=== PATIENT | female | born 1980 | race Caucasian/White ===

== ENCOUNTER 2017-10-26 08:36 | Day surgery (SDC) | payer OTHER ==
[2017-10-26] MEDS ORDERED: ULTRACET PO (16:16)
== END 2017-10-26 21:15 | disposition home or self-care (01) ==
LOC: CIR.AMB 08:36
DX: D25.0 Submucous leiomyoma of uterus (principal)

== ENCOUNTER 2020-08-31 09:45 | Inpatient (IN) | payer OTHER ==
[~2020-08-31] VITALS: Ht 162.6 cm; Wt 56.7 kg
[~2020-08-31 09:45] MED LIST: ULTRACET PO
[2020-09-06] MEDS ORDERED: PROFERRIN-FORT1 EACH PO (07:38)
[2020-09-06] MEDS ORDERED: GABAPENTIN300 MG PO (07:38)
[2020-09-06] MEDS ORDERED: CODE1TAB37 PO (07:38)
== END 2020-09-06 10:17 | disposition home or self-care (01) | DRG 743 ==
LOC: OB/GYN 09-03 07:40 → O/R 09-03 07:40 → SURH 09-03 08:30 → OB/GYN 09-03 13:46
PROVIDERS: ADMIT Obstetrics & Gynecology Gynecology; ATTEND Obstetrics & Gynecology Gynecology
PROC: 0UB90ZZ Excision of Uterus, Open Approach (ICD-10-PCS; principal; 2020-09-03 08:30)
PROC: 30233N1 Transfusion of Nonautologous Red Blood Cells into Peripheral Vein, Percutaneous Approach (ICD-10-PCS; 2020-09-05)
DX: D25.1 Intramural leiomyoma of uterus (principal); D50.0 Iron deficiency anemia secondary to blood loss (chronic); D25.2 Subserosal leiomyoma of uterus; D25.0 Submucous leiomyoma of uterus